=== PATIENT | male | born 1960 | race Two or more races ===

== ENCOUNTER 2024-04-29 11:58 | Emergency (ER) | payer MEDICAID, SELFPAY ==
[2024-04-29 11:59] VITALS: BMI 23.0
[2024-04-29 12:26] VITALS: BP 182/97; PULSE 81; RESP 19; TEMP 37.2; O2SAT 98; BMI 25.2
--- NOTE | 2024-04-29 12:29 | XR_ITS ---
Examination: Testicular sonography complete Technique: Grayscale sonographic images testes, assessment arterial inflow venous outflow Doppler spectral analysis carful analysis Exam date and time: April 29, 2024 1248 hrs. Indications: Left testicular pain and swelling beginning 3 days ago, patient currently is on antibiotic therapy Findings: Right testis 3.4 x 2.9 x 2.4 cm Epididymis 12 mm Arterial flow testicle. No testicular mass Moderate hydrocele Mild varicocele Left testis 2.8 x 2.5 x 2.4 cm Epididymis 19 mm, left epididymal cysts, the largest 12 mm Arterial flow to the testicle. No testicular mass Moderate to large left hydrocele Impression: No testicular torsion or testicular mass Mild right varicocele Left epididymitis Benign left epididymal cysts Bilateral hydroceles
--- NOTE | 2024-04-29 12:30 | EDRME_ITS ---
Rapid Medical Screening Exam RME Arrival date/time: 04/29/24 11:58 63-year-old male presents the emergency department today with plaint of left- sided testicular swelling patient reports dysuria currently on antibiotics Chief Complaint: Urogenital-Male Time Seen by Provider: 04/29/24 12:10 Vital signs: Vital Signs Temperature 98.9 F 04/29/24 12:26 Pulse Rate 81 04/29/24 12:26 Respiratory Rate 19 04/29/24 12:26 Blood Pressure 182/97 H 04/29/24 12:26 Pulse Oximetry (%) 98 04/29/24 12:26 Oxygen Delivery Method Room Air 04/29/24 12:26
[2024-04-29 13:17] LABS: Collection Type, Urine Clean Catch
[2024-04-29 13:29] LABS: Basophils # (Auto) 0.1 Thou/mm3 (0.0-0.2); Basophils % (Auto) 1 % (0-2.5); Eosinophils # (Auto) 0.2 Thou/mm3 (0.0-0.5); Eosinophils % (Auto) 3 % (0-10); Hematocrit 40.1 % (41.0-53.0); Hemoglobin 13.2 g/dL (13.5-16.0); Immature Granulocytes % (Auto) 1 % (0-0); Immature Granulocytes Auto 0.04 Thou/mm3 (0.00-0.00); Lymphocytes # (Auto) 2.1 Thou/mm3 (1.0-4.8); Lymphocytes % (Auto) 29 % (10-50); Mean Corpuscular HGB Conc 32.9 g/dl (31.0-37.0); Mean Corpuscular Hemoglobin 28.2 pg (25.0-35.0); Mean Corpuscular Volume 86 fL (80-100); Monocytes # (Auto) 0.7 Thou/mm3 (0.0-0.8); Monocytes % (Auto) 10 % (0-12); Neutrophils # (Auto) 4.2 Thou/mm3 (1.8-7.7); Neutrophils % (Auto) 58 % (37-80); Nucleated Red Blood Cell % 0 /100 WBC (0); Platelet Count 309 Thou/mm3 (140-440); RDW Standard Deviation 40.8 fL (35.1-43.9); Red Blood Count 4.68 Miln/mm3 (4.50-5.90); White Blood Count 7.3 Thou/mm3 (3.8-10.6)
[2024-04-29 13:30] LABS: Bacteria,Urine Rare; Bilirubin,Urine Negative (Negative); Blood,Urine Negative (Negative); Clarity,Urine Clear (Clear/Hazy); Color,Urine Yellow (Lt Yel-Yel); Culture Indicated,Urine Not Indicated; Glucose, Urine Negative (Negative); Hyaline Casts,Urine < 1 /hpf (0-1); Ketones,Urine Negative (Negative); Leukocyte Esterase,Urine Positive (Negative); Nitrite,Urine Negative (Negative); Protein,Urine Negative (Neg - Trace); RBC,Urine 1 /hpf (0-3); Specific Gravity,Urine 1.016 (1.001-1.035); Squamous Epithelial Cell,Urine 1 /hpf (0-5); Urobilinogen,Urine Negative mg/dL (0.0-1.0); WBC,Urine 4 /hpf (0-5)
[2024-04-29 13:57] LABS: Alanine Aminotransferase 15 U/L (10-49); Albumin, Serum 4.8 gm/dL (3.4-4.8); Albumin/Globulin Ratio 1.4 (1.2-2.2); Alkaline Phosphatase 108 U/L (46-116); Anion Gap 11 (7-16); BUN/Creatinine Ratio 13 Ratio (12-20); Bilirubin,Total 0.3 mg/dL (0.3-1.2); Blood Urea Nitrogen 12 mg/dL (9-23); Calcium 9.3 mg/dL (8.3-10.6); Calcium (Corrected) 9.3 mg/dL (8.5-10.1); Carbon Dioxide 23.1 mMol/L (20.0-31.0); Chloride 105 mMol/L (98-107); Creatinine (Component) 0.9 mg/dL (0.6-1.3); Estimated Creatinine Clearance 65.7 mL/min (>60); Globulin 3.4 gm/dL (2.3-3.5); Glucose 106 mg/dL (74-106); Osmolality,Calculated 277 (275-295); Potassium 3.5 mMol/L (3.4-5.1); Sodium 139 mMol/L (136-145); Total Protein 8.2 gm/dL (5.7-8.2); eGFR > 60 See Note
--- NOTE | 2024-04-29 13:57 | EDNOTE_ITS ---
<Statement entered by Ashlee Rosario MD - 04/29/24 17:53> As co-signing physician, I was present and available for consult prn. I concur with the plan and care as documented by the midlevel provider. ED General RME/HPI General Chief complaint: Urogenital-Male Stated complaint: LEFT TESTICLE PAIN/SWELLING FOR 3 DAYS Time Seen by Provider: 04/29/24 12:10 Arrival date/time: 04/29/24 11:58 CC: Left testicle pain HPI ongoing for the past 3 days states he is already been started on antibiotic, determined to be nitrofurantoin, from the [facility] for a UTI . Patient denies painful urination bloody urination knee penile discharge is not sexually active denies any fever chills shortness of breath or difficulty breathing. RME / HPI RME / HPI narrative: 04/29/24 11:58 63-year-old male presents the emergency department today with plaint of left- sided testicular swelling patient reports dysuria currently on antibiotics Related Data Home Medications ?Medication ?Instructions ?Recorded ?Confirmed lisinopril 10 mg tablet 10 mg PO QDAY 08/10/21 09/25/22 metformin 500 mg tablet 500 mg PO QDAY 08/10/21 08/06/22 tamsulosin 0.4 mg capsule (Flomax) 0.4 mg PO BID 08/10/21 09/25/22 ferrous gluconate 324 mg (38 mg 324 mg PO EVERYOTHERDAY 05/10/22 09/25/22 iron) tablet Previous Rx's ?Medication ?Instructions ?Recorded atorvastatin 40 mg tablet 40 mg PO HS 30 days #30 tabs 09/28/22 cefuroxime axetil 500 mg tablet 500 mg PO BID #14 tabs 04/17/23 doxycycline hyclate 100 mg capsule 100 mg PO BID #14 caps 04/29/24 Allergies Allergy/AdvReac Type Severity Reaction Status Date / Time No Known Allergies Allergy Verified 04/29/24 12:03 Review of Systems Review of Systems Narrative Review of Systems: GEN: No fever, no chills, no weight loss EYES: No discharge, no visual changes, no pain HEENT: No ear pain, no congestion, no sore throat PULM: No shortness of breath, no cough, no congestion CV: No chest pain, no dyspnea on exertion, no palpitations GI: No nausea, no vomiting, no diarrhea, no pain, no constipation : No frequency, no urgency, no dysuria MUSC/SKEL: No joint pain, no back pain SKIN: No rash PSYCH: No hallucinations, no depression HEME/LYMPH: No easy bleeding or bruising tendencies NEURO: No weakness, no headache Past Medical History Past Medical History NEUROLOGIC: Negative Neurological Disorders, Cerebrovascular Accident, Transient Ischemic Attacks (TIA), Dementia, Alzheimer's Disease, Parkinson's Disease, Brain Tumor, Meningitis, Seizures, Epilepsy, Multiple Sclerosis, Cerebral Palsy, Amyotrophic Lateral Sclerosis (ALS/April Gehrig's), Guillain-[place] Syndrome, Spina Bifida, Paralysis, Peripheral Neuropathy, [place]'s Palsy, Subdural Hematoma, Migraine, Head Trauma, Spinal Cord Injury or Traumatic Brain Injury CARDIAC: Positive Hypercholesterolemia and Hypertension; Negative Cardiac Disorders, Myocardial Infarction, Cardiac Arrhythmia, Atrial Fibrillation, Angina, Heart Murmur, Coronary Artery Disease, Atherosclerotic Heart Disease, Peripheral Vascular Disease, Aneurysm, Congestive Heart Failure, Congenital Heart Disease, Valvular Heart Disease, Rheumatic Fever, Cardiomyopathy, Edema, Pericarditis, Cellulitis, Deep Vein Thrombosis, Hypotension or Varicose Veins RESPIRATORY: Positive Pneumonia; Negative Chronic Obstructive Pulmonary Disease (COPD), Asthma, Bronchitis, Emphysema, Pulmonary Fibrosis, Cystic Fibrosis, Tuberculosis, Pulmonary Embolism, Pulmonary Edema or Sleep Apnea GASTROINTESTINAL: Negative Gastrointestinal Disorders, Hepatitis, Cirrhosis, Pancreatitis, Celiac Disease, Gall Bladder Disease, Gastrointestinal Bleed, Esophageal Varices, Abdalla's Esophagus, Colitis, Ulcerative Colitis, Diverticulitis, Diverticulosis, Ulcer, Colorectal Cancer, Irritable Bowel, Crohn's Disease, Obstructive Bowel, Hiatal Hernia, Hemorrhoids, Gastroesophageal Reflux Disease or Obesity GENITOURINARY: Positive Genitourinary Disorders, Kidney Stones and Benign Prostatic Hyperplasia; Negative Renal Disease, Polycystic Kidney Disease, Neurogenic Bladder, Inguinal Hernia, Dialysis or Prostate Cancer REPRODUCTIVE: Negative Breast Cancer, Fibroids, Genital Herpes, Gonorrhea, Syphilis or Testicular Cancer MUSCULOSKELETAL: Negative Musculoskeletal Disorders, Muscular Dystrophy, Myasthenia Gravis, Marfan's Syndrome, Bone Cancer, Arthritis, Rheumatoid Arthritis, Osteoporosis, Degenerative Disk Disease, Gout, Scoliosis, Carpal Tunnel Syndrome, Fibromyalgia, Fractures, Degenerative Joint Disease, Osteomyelitis or Poliovirus ENT: Negative Cataracts, Glaucoma, Blind, Retinal Detachment, Macular Degeneration, Ear Infection, Deafness, Head Trauma or Eye Prosthesis ENDOCRINE: Positive Endocrine Disorders and Diabetes Mellitus Type 2; Negative Diabetes Mellitus Type 1, Hypoglycemia, Nancy's Syndrome, [place]'s Disease, Hyperthyroidism, Hypothyroidism, Parathyroid Disease, Pituitary Disease, Systemic Lupus Erythematosus, Syndrome of Inappropriate Antidiuretic Hormone (SIADH), Adrenal Disease or Graves' Disease HEMATOLOGIC: Negative Blood Disorders, Anemia, Leukemia, Hemophilia, Thalassemia, Sickle Cell Disease or Clotting Problems PSYCHO/SOCIAL: Negative Psychiatric Problems, Schizophrenia, Recreational Drug Use, Bipolar Disorder, Depression, Anxiety, Behavior Problems, Self-Mutilation, Attention Deficit Disorder, Attention Deficit Hyperactivity Disorder, Post Traumatic Stress Disorder or Eating Disorder OTHER HISTORY: Positive Hospitalization (infection) and Measles; Negative Autoimmune Disease, Down Syndrome, Autism, Developmental Delay, Shingles, Falls, Blood Transfusions, Blood Transfusion Reaction, Anesthesia Reactions, Organ Transplant, Chemotherapy, Radiation Therapy, Hyperbaric Therapy, MRSA, VRSA, Vancomycin-Resistant Enterococci, Human Immunodeficiency Virus (HIV), Chicken Pox, Mumps, Rubella ([place] Measles), Pertussis, Clostridium Difficile, Cancer, Breast Cancer, Cervical Cancer, Colorectal Cancer, Lung Cancer, Ovarian Cancer, Prostate Cancer or Testicular Cancer Family History FAMILY HISTORY: Negative Family Psychiatric Problems (unknown), Family Respiratory Disorders (unknown), Family Cardiac Disorders (unk), Family Gastrointestinal Problems (unknown), Family Cancer, Family Surgery or Family Anesthesia Reaction Surgical History SURGICAL: Negative Cardiac Surgery, Open Heart Surgery, Coronary Artery Bypass Graft, Valve Replacement, Vascular Surgery, Coronary Stent, Cardiac Catheterization, Pacemaker, Angiogram, Auto Implanted Cardiovert Defib, Carotid Endarterectomy, Endocrine Surgery, Thyroidectomy, Ear Surgery, Tympanostomy Tube, Eye Surgery, Nose Surgery, Oral Surgery, Tonsillectomy, Adenoidectomy, Cochlear Implant, Corneal Transplant, Throat Surgery, Abdominal Surgery, Tracheostomy, Gastric Bypass Surgery, Gastrostomy, Bowel Surgery, Nephrectomy, Transurethral Resection, Joint Replacement, Amputation, Open Reduction Internal Fixation, Arthroscopy, Neurologic Surgery, Brain Shunt, Mastectomy, Lumpectomy, Hysterectomy, Tubal Ligation, Section, Vasectomy or Organ Transplant Social History SMOKING STATUS: Never smoker SUBSTANCE USE: does not use ED Exam Narrative Physical exam: [General: Not in any acute distress Head normocephalic HEENT: Within acceptable limits Neck is supple nontender Chest equal chest rise nontender to palpation Respiratory: Clear to auscultation no wheezes crackles or rubs CV: Rate rhythm is regular no murmurs rubs or clicks Abdomen is flat soft nontender no masses positive bowel sounds all 4 quadrants Back: No CVA tenderness no spinous process tenderness from cervical spine thoracic and lumbar spine Skin: Intact no petechiae rash induration ulceration or crepitus Extremities: Moving all extremity against resistance cap refill less than 2 seconds neurosensory intact Neuro: Awake alert oriented x3 Glascow coma 15 no focal deficits] Course Quality Measures none Orders Category Date Time Status US testicular Stat Exams 04/29/24 12:29 Completed CBC Stat Lab 04/29/24 13:10 Completed Comprehensive Metabolic Panel Stat Lab 04/29/24 13:10 Results UA, C/S IF [Urinalysis, C/S if Indicated] Stat Lab 04/29/24 12:45 Completed 500 mg IM w/Lido* 1% Med 04/29/24 13:56 Ordered cefTRIAXone [Rocephin] 500 mg Lidocaine 1% 20 ml [Xylocaine 1% 20 ML] 1 ml IM X1 Vital Signs Vital signs: Vital Signs Temperature 98.9 F 04/29/24 12:26 Pulse Rate 81 04/29/24 12:26 Respiratory Rate 19 04/29/24 12:26 Blood Pressure 182/97 H 04/29/24 12:26 Pulse Oximetry (%) 98 04/29/24 12:26 Oxygen Delivery Method Room Air 04/29/24 12:26 [facility] Patient data External records reviewed:: [facility] previous records Clinical information provided by:: patient Social determinants that could affect healthcare access:: none Patient has the following chronic illnesses:: Hyperlipidemia hypertension diabetes How is presenting disease/condition affected by chronic disease/condition?: u neffected by Evaluation data The following diagnostics were reviewed and interpreted by me:: lab results and radiology exam(s) Lab and/or radiology exams considered but not ordered:: CBC shows no acute leukocytosis anemia thrombocytopenia CMP shows no electrolyte imbalances renal impairment transaminitis or T. bili elevation Urine is negative for UTI Ultrasound of the testicle shows a left epididymitis. Interpretation Summary: Epididymitis Medications Medications considered but not ordered:: None Medication administrations:: None Consultations Consultation(s) initiated? (list below): No Diagnosis Differential Diagnosis ED Complaint MDM: Epididymitis hydrocele UTI Most likely diagnosis given after review of the tests above:: Left epididymitis Admission Indicated Admission indicated?: not indicated Explain why admission is indicated or not indicated:: Stable for discharge Admission Request Was there a request for admission?: No Disposition Plan Disposition Plan: Discharge Discharge Attestation Discharge Attestation: The patient and all family members were given an opportunity to ask questions and understood the discharge instructions. Discharge instructions specifically effects, indications for sooner follow up or return to the emergency department, and the expected course of current diagnosis. Patient condition: Stable Medical Decision Making Differential Diagnosis Differential Diagnosis: Epididymitis hydrocele UTI Lab Data 04/29/24 13:10 04/29/24 13:10 Labs: Lab Results 04/29/24 04/29/24 Range/Units 12:45 13:10 WBC 7.3 (3.8-10.6) Thou/mm3 RBC 4.68 (4.50-5.90) Miln/mm3 Hgb 13.2 L (13.5-16.0) g/dL Hct 40.1 L (41.0-53.0) % MCV 86 (80-100) fL MCH 28.2 (25.0-35.0) pg MCHC 32.9 (31.0-37.0) g/dl RDW Std Deviation 40.8 (35.1-43.9) fL Plt Count 309 (140-440) Thou/mm3 Neut % (Auto) 58 (37-80) % Lymph % (Auto) 29 (10-50) % [place] % (Auto) 10 (0-12) % Eos % (Auto) 3 (0-10) % Baso % (Auto) 1 (0-2.5) % Neut # (Auto) 4.2 (1.8-7.7) Thou/mm3 Lymph # (Auto) 2.1 (1.0-4.8) Thou/mm3 [place] # (Auto) 0.7 (0.0-0.8) Thou/mm3 Eos # (Auto) 0.2 (0.0-0.5) Thou/mm3 Baso # (Auto) 0.1 (0.0-0.2) Thou/mm3 Immature Gran # (Auto) 0.04 H (0.00-0.00) Thou/mm3 Absolute Nucleated RBC 0.00 (0.00-0.00) Thou/mm3 Immature Gran % 1 H (0-0) % Nucleated RBC % 0 (0) /100 WBC Sodium 139 (136-145) mMol/L Potassium 3.5 (3.4-5.1) mMol/L Chloride 105 (98-107) mMol/L Carbon Dioxide 23.1 (20.0-31.0) mMol/L Anion Gap 11 (7-16) BUN 12 (9-23) mg/dL Creatinine 0.9 (0.6-1.3) mg/dL Estim Creat Clear Calc 65.7 (>60) mL/min eGFR > 60 (60 - ) See Note BUN/Creatinine Ratio 13 (12-20) Ratio Glucose 106 (74-106) mg/dL Calculated Osmolality 277 (275-295) Calcium 9.3 (8.3-10.6) mg/dL Corrected Calcium 9.3 (8.5-10.1) mg/dL Total Bilirubin 0.3 (0.3-1.2) mg/dL ALT 15 (10-49) U/L Alkaline Phosphatase 108 (46-116) U/L Total Protein 8.2 (5.7-8.2) gm/dL Albumin 4.8 (3.4-4.8) gm/dL Globulin 3.4 (2.3-3.5) gm/dL Albumin/Globulin Ratio 1.4 (1.2-2.2) Ur Collection Type Clean Catch Urine Color Yellow (Lt Yel-Yel) Urine Clarity Clear (Clear/Hazy) Urine pH 6.0 (5.0-7.0) Ur Specific [place] 1.016 (1.001-1.035) Urine Protein Negative (Neg - Trace) Urine Glucose (UA) Negative (Negative) Urine Ketones Negative (Negative) Urine Blood Negative (Negative) Urine Nitrite Negative (Negative) Urine Bilirubin Negative (Negative) Urine Urobilinogen (Auto) Negative (0.0-1.0) mg/dL Ur Leukocyte Esterase Positive (Negative) Urine RBC 1 (0-3) /hpf Urine WBC 4 (0-5) /hpf Ur Squamous Epith Cells 1 (0-5) /hpf Urine Bacteria Rare (None) Hyaline Casts < 1 (0-1) /hpf Ur Culture Indicated? Not Indicated Discharge Plan Plan Patient Disposition: HOME (Self Care) Patient condition on transfer: Stable Prescriptions/Referrals Prescriptions/Med Rec: New doxycycline hyclate 100 mg capsule 100 mg PO BID Qty: 14 0RF No Action lisinopril 10 mg tablet 10 mg PO QDAY metformin 500 mg tablet 500 mg PO QDAY tamsulosin [Flomax] 0.4 mg capsule 0.4 mg PO BID ferrous gluconate 324 mg (38 mg iron) tablet 324 mg PO EVERYOTHERDAY cefuroxime axetil 500 mg tablet 500 mg PO BID Qty: 14 0RF atorvastatin 40 mg tablet 40 mg PO HS 30 Days Qty: 30 2RF Referrals: Franklyn aGrcia MD [Physician] - In 1 week Problem List Clinical Impression: Epididymitis Patient/Caregiver Discharge Instructions Other Activity Instructions:: Take the medications as prescribed there is worsening of symptoms return the emergency room immediately for further evaluation. Education Materials: ED Epididymitis Print Language: [place] Islander Stand Alone Forms: Sherrill Award Info., Patient Portal Info Letter, Work/School Release PA/DITCH CLEANER Supervising Physician PA/DITCH CLEANER Supervising Physician: Alex Fernandez ENP
[2024-04-29 14:08] LABS: Aspartate Amino Transferase 15 U/L (0-34)
[2024-04-29] MEDS: cefTRIAXone 500 MG, LIDOCAINE 1% 20 ML 1 ML IM (14:10)
== END 2024-04-29 14:12 | disposition home or self-care (01) ==
LOC: SERX 15:44
PROVIDERS: Nurse Practitioner Primary Care; Emergency Provider Emergency Medicine
DX: N45.1 Epididymitis (principal)
CPT/HCPCS: 36415; 76870; 80053; 81001; 85025; 96372; 99284; J0696; J3490

== ENCOUNTER 2024-05-01 16:14 | Emergency (ER) | payer MEDICAID, SELFPAY ==
[2024-05-01 16:21] VITALS: BP 163/77; PULSE 127; RESP 19; TEMP 38.1; O2SAT 95; BMI 25.6
--- NOTE | 2024-05-01 16:37 | XR_ITS ---
Examination: PA lateral chest 2 views Technique: Upright PA lateral chest 2 views Exam date and time: May 01, 2024 1644 hrs. Comparison 11/15/2022 Indications: Onset left testicular pain today as well as coughing Findings: Normal heart size Lungs are clear. The osseous structures are intact Impression: No active disease
--- NOTE | 2024-05-01 16:38 | XR_ITS ---
Examination: Testicular sonography complete Technique: Grayscale sonographic images testes, assessment arterial inflow venous outflow Doppler spectral analysis carful analysis Exam date and time: May 01, 2024 1701 hrs. Indications: Onset left testicular pain beginning 6 days ago worse today Findings: Right testis 3.2 x 1.7 x 2.3 cm Epididymis 10 mm Arterial flow testicle. No testicular mass Mild varicocele Minimal hydrocele Left testis 2.9 x 2.3 x 2.3 cm Increased flow to the left epididymis, epididymis measuring 25 mm, 8mm left epididymal cyst Increased arterial flow to the testicle No testicular mass Mild left hydrocele Impression: Left orchitis Left epididymitis Benign left epididymal cyst
--- NOTE | 2024-05-01 16:38 | PD.EDRME ---
Rapid Medical Screening Exam RME Arrival date/time: 05/01/24 16:14 63-year-old male with a history of hyperlipidemia, hypertension, type 2 diabetes presents to the emergency room with a chief complaint of left testicular pain and tenderness x 3 days. I have greeted and performed a focused initial assessment of this patient. A comprehensive ED assessment and evaluation of the patient, analysis of all test results, and completion of the medical decision making process will be conducted by additional ED providers. Chief Complaint: Urogenital-Male Vital signs: Vital Signs Temperature 100.5 F H 05/01/24 16:21 Pulse Rate 127 H 05/01/24 16:21 Respiratory Rate 19 05/01/24 16:21 Blood Pressure 163/77 H 05/01/24 16:21 Pulse Oximetry (%) 95 05/01/24 16:21 Oxygen Delivery Method Room Air 05/01/24 16:21 Vital signs reviewed by provider: Yes
[2024-05-01 16:55] LABS: Collection Type, Urine Clean Catch
[2024-05-01 17:10] LABS: Lactate (Lactic Acid) 1.7 mMol/L (0.4-2.0)
[2024-05-01 17:11] LABS: Basophils % (Auto) 0 % (0-2.5); Eosinophils # (Auto) 0.1 Thou/mm3 (0.0-0.5); Eosinophils % (Auto) 1 % (0-10); Hematocrit 39.5 % (41.0-53.0); Hemoglobin 13.1 g/dL (13.5-16.0); Immature Granulocytes % (Auto) 0 % (0-0); Immature Granulocytes Auto 0.04 Thou/mm3 (0.00-0.00); Lymphocytes # (Auto) 2.1 Thou/mm3 (1.0-4.8); Lymphocytes % (Auto) 19 % (10-50); Mean Corpuscular HGB Conc 33.2 g/dl (31.0-37.0); Mean Corpuscular Hemoglobin 28.2 pg (25.0-35.0); Mean Corpuscular Volume 85 fL (80-100); Monocytes # (Auto) 0.8 Thou/mm3 (0.0-0.8); Monocytes % (Auto) 8 % (0-12); Neutrophils # (Auto) 7.7 Thou/mm3 (1.8-7.7); Neutrophils % (Auto) 71 % (37-80); Nucleated Red Blood Cell % 0 /100 WBC (0); Platelet Count 372 Thou/mm3 (140-440); RDW Standard Deviation 40.2 fL (35.1-43.9); Red Blood Count 4.65 Miln/mm3 (4.50-5.90); White Blood Count 10.7 Thou/mm3 (3.8-10.6)
[2024-05-01 17:12] LABS: Bacteria,Urine 2+; Bilirubin,Urine Negative (Negative); Blood,Urine Trace (Negative); Color,Urine Yellow (Lt Yel-Yel); Glucose, Urine Negative (Negative); Ketones,Urine Negative (Negative); Leukocyte Esterase,Urine Positive (Negative); Nitrite,Urine Negative (Negative); Protein,Urine Trace (Neg - Trace); RBC,Urine 13 /hpf (0-3); Specific Gravity,Urine 1.018 (1.001-1.035); Squamous Epithelial Cell,Urine 2 /hpf (0-5); Urobilinogen,Urine Negative mg/dL (0.0-1.0); WBC,Urine 492 /hpf (0-5)
[2024-05-01 17:18] LABS: Clarity,Urine Hazy (Clear/Hazy)
[2024-05-01 17:19] VITALS: TEMP 38.1
[2024-05-01] MEDS: ACETAMINOPHEN 500 MG TABLET 1000 MG PO (17:19)
[2024-05-01] MEDS: KETOROLAC INJ 60 MG/2 ML VIAL 30 MG IM (17:20)
[2024-05-01 17:38] LABS: Alanine Aminotransferase 18 U/L (10-49); Albumin, Serum 4.7 gm/dL (3.4-4.8); Albumin/Globulin Ratio 1.5 (1.2-2.2); Alkaline Phosphatase 111 U/L (46-116); Anion Gap 12 (7-16); Aspartate Amino Transferase 15 U/L (0-34); BUN/Creatinine Ratio 14 Ratio (12-20); Bilirubin,Total 0.2 mg/dL (0.3-1.2); Blood Urea Nitrogen 14 mg/dL (9-23); Calcium 9.3 mg/dL (8.3-10.6); Calcium (Corrected) 9.3 mg/dL (8.5-10.1); Carbon Dioxide 21.9 mMol/L (20.0-31.0); Chloride 104 mMol/L (98-107); Estimated Creatinine Clearance 59.2 mL/min (>60); Globulin 3.2 gm/dL (2.3-3.5); Glucose 166 mg/dL (74-106); Osmolality,Calculated 280 (275-295); Potassium 3.6 mMol/L (3.4-5.1); Procalcitonin 0.04 ng/ml (0.0-0.49); Sodium 138 mMol/L (136-145); Total Protein 7.9 gm/dL (5.7-8.2); eGFR > 60 See Note
[2024-05-01 19:01] VITALS: TEMP 37.3
--- NOTE | 2024-05-01 19:16 | EDNOTE_ITS ---
ED Male Genitalurinary RME/HPI General Chief complaint: Urogenital-Male Stated complaint: LEFT TESTICLE PAIN Time Seen by Provider: 05/01/24 19:15 Arrival date/time: 05/01/24 16:14 63 year old male present to emergency room with c/o of ongoing left testicle pain for 3 days. pt was seen 2 days ago for similar complaint. placed on oral antibiotics but just rescent start his doxy and cefuroxime. denies any new trauma or symptoms. LOCATION: groin SEVERITY: Symptoms are described as being severe with limitations on activities of daily living CONTEXT: The patient is unable to identify any inciting events. DURATION/TIMING: The symptoms started approximately 3 days ago and have been constant since and have been progressive getting worse. ASSOCIATED SYMPTOMS: The patient is unable to identify any other associated symptoms. MODIFYING FACTORS: The patient is unable to identify any alleviating or aggravating symptoms. PERTINENT ROS: no fevers, no cough, no pleuritic pain, no ripping or tearing sensations, denies any lower extremity edema and no unilateral swelling, no chest pain/shortness of breath no nausea,vomiting, diarrhea, no dizziness/headache no rash no loc/syncope episode no abd/back pain no dsyuria,urgency,frequency REVIEW OF SYSTEMS: See History of Present Illness - with the exception of those mentioned in the history of present illness, all other systems reviewed and reported as negative GENERAL: In general the patient is awake, interactive, in an emergency department gurney. HEAD/EYES/EARS/NOSE/THROAT: normo-cephalic, atraumatic, mucus membranes are moist, anicteric, palpebral conjunctiva is pink, trachea is midline. CARDIOVASCULAR: regular rate and regular rhythm, no murmurs, heart sounds are not distant, strong pulses in all four extremities that are equal and symmetric bilateral upper and lower extremities, normal capillary refill. CHEST/PULMONARY: normal chest rise and fall, good air movement, clear to auscultation bilaterally, normal inspiratory to expiratory ratios without evidence of respiratory distress. NECK: No midline/Paraspinal tenderness, no step off ROM/Strenght intact No Kernig and bruzinski sign. No trauma ABDOMEN: soft, not tender, no masses appreciated : decline exam BACK: normal range of motion without pain. NEUROLOGICAL: cranio-facial features are symmetric, moves all four extremities equally without obvious limitations or weakness. EXTREMITY: no tenderness to palpation over the long bones or large joints of the bilateral upper and lower extremities, no joint swelling, no joint erythema, no signs of trauma, no unilateral leg swelling and no peripheral edema. SKIN: warm, dry, well-perfused, no jaundice, no rash, no telangiectasias or petechia. PSYCH: calm, cooperative, no evidence of psychosis or agitation RME / HPI RME / HPI Narrative: 05/01/24 16:14 63-year-old male with a history of hyperlipidemia, hypertension, type 2 diabetes presents to the emergency room with a chief complaint of left testicular pain and tenderness x 3 days. I have greeted and performed a focused initial assessment of this patient. A comprehensive ED assessment and evaluation of the patient, analysis of all test results, and completion of the medical decision making process will be conducted by additional ED providers. Related Data Home Medications ?Medication ?Instructions ?Recorded ?Confirmed lisinopril 10 mg tablet 10 mg PO QDAY 08/10/21 09/25/22 metformin 500 mg tablet 500 mg PO QDAY 08/10/21 08/06/22 tamsulosin 0.4 mg capsule (Flomax) 0.4 mg PO BID 08/10/21 09/25/22 ferrous gluconate 324 mg (38 mg 324 mg PO EVERYOTHERDAY 05/10/22 09/25/22 iron) tablet Previous Rx's ?Medication ?Instructions ?Recorded atorvastatin 40 mg tablet 40 mg PO HS 30 days #30 tabs 09/28/22 cefuroxime axetil 500 mg tablet 500 mg PO BID #14 tabs 04/17/23 doxycycline hyclate 100 mg capsule 100 mg PO BID #14 caps 04/29/24 Allergies Allergy/AdvReac Type Severity Reaction Status Date / Time No Known Allergies Allergy Verified 05/01/24 16:17 Course Course Course Narrative: The patient is suffering from testicular pain, but based on the history, exam, and testing, I do not suspect that the patient has testicular torsion, abscess, severe cellulitis, Mireille?s gangrene, or other emergent cause. UA + leuks and rbc/bacteria US Scrotum:Right testis 3.2 x 1.7 x 2.3 cm Epididymis 10 mm Arterial flow testicle. No testicular mass Mild varicocele Minimal hydrocele Left testis 2.9 x 2.3 x 2.3 cm Increased flow to the left epididymis, epididymis measuring 25 mm, 8mm left epididymal cyst Increased arterial flow to the testicle No testicular mass Mild left hydrocele Impression: Left orchitis Left epididymitis Benign left epididymal cyst cbc/cmp no acute findings cxr: nad Disposition: Plan follow up with primary care doctor for symptom re-check and possible referral to urology. Discussed return precautions at bedside. Discharge. Quality Measures none Orders Category Date Time Status Bedside COVID-19 Antigen Test NOW Care 05/01/24 16:37 Active Bedside Influenza A&B Antigen Test NOW Care 05/01/24 16:37 Active US testicular Stat Exams 05/01/24 16:38 Completed XR chest 2V Stat Exams 05/01/24 16:37 Completed Blood Culture (Lab) Stat Lab 05/01/24 16:56 Received CBC Stat Lab 05/01/24 16:56 Completed CMP [Comprehensive Metabolic Panel] Stat Lab 05/01/24 16:56 Completed Lactate (Lactic Acid) Stat Lab 05/01/24 16:56 Completed Procalcitonin Stat Lab 05/01/24 16:56 Completed UA [Urinalysis] Stat Lab 05/01/24 16:42 Completed Urine Culture Stat Lab 05/01/24 16:42 Received Acetaminophen Tab [Tylenol ES Tab] Med 05/01/24 16:39 Discontinued 1,000 mg PO X1 ONE Ketorolac Inj [Toradol Inj] Med 05/01/24 16:39 Discontinued 30 mg IM X1 ONE Vital Signs Vital signs: Vital Signs Temperature 100.5 F H 05/01/24 16:21 Pulse Rate 127 H 05/01/24 16:21 Respiratory Rate 19 05/01/24 16:21 Blood Pressure 163/77 H 05/01/24 16:21 Pulse Oximetry (%) 95 05/01/24 16:21 Oxygen Delivery Method Room Air 05/01/24 16:21 Urogenital - Male Patient data External records reviewed:: [facility] previous records Clinical information provided by:: patient Social determinants that could affect healthcare access:: none Patient has the following chronic illnesses:: dm, htn, hdl How is presenting disease/condition affected by chronic disease/condition?: ex acerbated by Evaluation data The following diagnostics were reviewed and interpreted by me:: lab results and radiology exam(s) Lab and/or radiology exams considered but not ordered:: none Interpretation Summary: cxr: Right testis 3.2 x 1.7 x 2.3 cm Epididymis 10 mm Arterial flow testicle. No testicular mass Mild varicocele Minimal hydrocele Left testis 2.9 x 2.3 x 2.3 cm Increased flow to the left epididymis, epididymis measuring 25 mm, 8mm left epididymal cyst Increased arterial flow to the testicle No testicular mass Mild left hydrocele Impression: Left orchitis Left epididymitis Benign left epididymal cyst cxr: nad cbc/cmp no acute findings urine: leuk, bacteria Medications / Prescriptions Medications or Prescriptions considered but not ordered:: no Medication administrations:: Medication Administration History Discontinued Medications Acetaminophen (Acetaminophen 500 Mg Tablet) 1,000 mg PO X1 ONE Stop: 05/01/24 16:40 Last Admin: 05/01/24 17:19 Dose: 1,000 mg Documented By: OA Ketorolac Tromethamine (Ketorolac Inj 60 Mg/2 Ml Vial) 30 mg IM X1 ONE Stop: 05/01/24 16:40 Last Admin: 05/01/24 17:20 Dose: 30 mg Documented By: OA as state above Consultations Consultation(s) initiated? (list below): No Diagnosis Urogenital Male Differential Diagnosis: urinary tract infection, urethritis, epididymitis and other (torsion, orchitis ) Most likely diagnosis given after review of the tests above:: epidymitis and orchitis Admission Indicated Admission indicated?: not indicated Admission Request Was there a request for admission?: No Disposition Plan Disposition Plan: Discharge Discharge Attestation Discharge Attestation: The patient and all family members were given an opportunity to ask questions and understood the discharge instructions. Discharge instructions specifically effects, indications for sooner follow up or return to the emergency department, and the expected course of current diagnosis. Patient condition: Stable Discharge Plan Plan Patient Disposition: HOME (Self Care) Health Concerns: Follow with PMD as directed Take tylenol or motrin as need Return to ED if sx worsen Prescriptions/Referrals Prescriptions/Med Rec: No Action lisinopril 10 mg tablet 10 mg PO QDAY metformin 500 mg tablet 500 mg PO QDAY tamsulosin [Flomax] 0.4 mg capsule 0.4 mg PO BID ferrous gluconate 324 mg (38 mg iron) tablet 324 mg PO EVERYOTHERDAY cefuroxime axetil 500 mg tablet 500 mg PO BID Qty: 14 0RF doxycycline hyclate 100 mg capsule 100 mg PO BID Qty: 14 0RF atorvastatin 40 mg tablet 40 mg PO HS 30 Days Qty: 30 2RF Referrals: Franklyn Garcia MD [Primary Care Provider] - In 1 week Problem List Clinical Impression: Epididymitis, Orchiditis Patient/Caregiver Discharge Instructions Education Materials: ED Epididymitis, ED Orchitis Print Language: Mauritanian Stand Alone Forms: Sherrill Award Info., Patient Portal Info Letter
== END 2024-05-01 19:30 | disposition home or self-care (01) ==
PROVIDERS: Nurse Practitioner Family; Emergency Provider Emergency Medicine; PCP Family Medicine
DX: N45.3 Epididymo-orchitis (principal)
CPT/HCPCS: 36415; 71046; 76870; 80053; 81001; 83605; 84145; 85025; 87040; 87077; 87086; 87186; 87400; 87811; 96372; 99284; J1885; A9270